=== PATIENT | male | born 1990 | race Hispanic/Latino ===

== ENCOUNTER 2017-07-27 13:00 | Emergency (ER) ==
[~2017-07-27] VITALS: Ht 175.3 cm; Wt 99.8 kg
== END 2017-07-27 17:08 | disposition left against medical advice (07) ==
LOC: ER 14:29
DX: R00.0 Tachycardia, unspecified (principal); R41.0 Disorientation, unspecified; R53.83 Other fatigue; F41.9 Anxiety disorder, unspecified; F19.19 Other psychoactive substance abuse with unspecified psychoactive substance-induced disorder